=== PATIENT | female | born 1955 | race Two or more races ===

== ENCOUNTER 2019-05-13 13:11 | Emergency (ER) | payer MEDICAID ==
[~2019-05-13] VITALS: Ht 162.6 cm; Wt 62.0 kg
[2019-05-13] MEDS ORDERED: ALBUTEROL (0.083%) 2.5MG/3ML NEB HHN STA (13:43)
[2019-05-13] MEDS ORDERED: SODIUM CHLORIDE 0.9% 1,000 ML IV ONE (13:43)
[2019-05-13] MEDS ORDERED: IPRATROPIUM BROMIDE (0.02%) 0.5MG/2.5ML NEB HHN STA (13:43)
[2019-05-13 16:18] LABS: CHLORIDE 103 mEq/L (98-107)
[2019-05-13 16:19] LABS: BASOPHILS % 0.8 % (0.0-2.0); EOSINOPHILS % 4.7 % (0.0-5.0); HEMATOCRIT. 36.2 % (36.0-48.0); HEMOGLOBIN. 11.9 g/dL (12.0-16.0); LYMPHOCYTES % 11.9 % (20.0-50.0); MEAN CORPUSCULAR HEMOGLOBIN 27.9 pg (28.0-32.0); MEAN CORPUSCULAR VOLUME 84.7 fL (81.0-99.0); MEAN PLATELET VOLUME 7.4 fl (7.4-10.4); MONOCYTES % 6.6 % (2.0-8.0); PLATELET 340 x1000/uL (130-400); RED BLOOD CELL COUNT 4.28 mill/uL (4.2-5.4)
[2019-05-13] MEDS ORDERED: ASPIRIN 81MG TABLET PO ONE (17:15)
[2019-05-14] MEDS ORDERED: ONDANSETRON HCL 4MG/2ML INJ IV PRN (10:30)
[2019-05-14] MEDS ORDERED: ACETAMINOPHEN 325MG TABLET PO PRN (10:30)
[2019-05-14] MEDS ORDERED: IPRATROPIUM/ALBUTEROL 0.5-3(2.5)MG/3ML NEB HHN PRN (12:45)
[2019-05-14 13:25] VITALS: BP 135/98
[2019-05-14] MEDS ORDERED: METOPROLOL TARTRATE 25MG TABLET PO SCH ×2 (21:00)
[2019-05-14] MEDS ORDERED: GUAIFENESIN 600MG ER TABLET PO SCH (21:00)
[2019-05-15] MEDS ORDERED: ASPIRIN 81MG TABLET PO SCH (09:00)
== END 2019-05-14 13:49 | disposition left against medical advice (07) ==
LOC: ER 13:11 → EDBEDREQ 18:25 → SUPCPDRO 05-14 12:08 → ER 05-14 13:49 → CANBEDREQ 05-14 14:23
DX: J06.9 Acute upper respiratory infection, unspecified (principal); I10 Essential (primary) hypertension; E87.6 Hypokalemia; E66.9 Obesity, unspecified; Z68.23 Body mass index [BMI] 23.0-23.9, adult; F32.9 Major depressive disorder, single episode, unspecified; Z91.19 Patient's noncompliance with other medical treatment and regimen
CPT/HCPCS: 36415; 71045; 80053; 83880; 84484; 85025; 85379; 93005; 93970; 94640; 99284; J7030; J7611; Z7610

== ENCOUNTER 2020-07-30 05:08 | Emergency (ER) | payer MEDICAID, OTHER ==
[~2020-07-30] VITALS: Ht 160 cm; Wt 69.0 kg
[2020-07-30 06:07] LABS: BASOPHILS % 0.6 % (0.0-2.0); EOSINOPHILS % 5.2 % (0.0-5.0); HEMATOCRIT. 33.8 % (36.0-48.0); HEMOGLOBIN. 10.9 g/dL (12.0-16.0); LYMPHOCYTES % 23.4 % (20.0-50.0); MEAN CORPUSCULAR HEMOGLOBIN 26.6 pg (28.0-32.0); MEAN CORPUSCULAR VOLUME 82.8 fL (81.0-99.0); MEAN PLATELET VOLUME 6.9 fl (7.4-10.4); MONOCYTES % 6.1 % (2.0-8.0); NEUTROPHILS % 64.7 % (40.0-76.0); PLATELET 358 x1000/uL (130-400); RED BLOOD CELL COUNT 4.09 mill/uL (4.2-5.4); RED CELL DISTRIBUTION WIDTH 16.5 % (11.6-14.6)
[2020-07-30 06:11] LABS: CHLORIDE 106 mEq/L (98-107)
[2020-07-30 10:40] VITALS: BP 118/66
== END 2020-07-30 10:56 | disposition home or self-care (01) ==
LOC: ER 05:08
DX: Z13.9 Encounter for screening, unspecified (principal); E11.9 Type 2 diabetes mellitus without complications; I10 Essential (primary) hypertension; Z59.0 Homelessness; Z86.59 Personal history of other mental and behavioral disorders
CPT/HCPCS: 36415; 80053; 85025; 99285